=== PATIENT | female | born 1980 | race Two or more races ===

== ENCOUNTER 2018-10-10 10:53 | Emergency (ER) | payer OTHER ==
[2018-10-10 11:04] VITALS: TEMP 98.7; O2SAT 98
[2018-10-10 12:31] LABS: BASO # 0.1 K/uL (0.0-0.2); BASO % 0.9 % (0.0-2.0); EOS # 0.3 K/uL (0.0-0.7); EOS % 4.9 % (0.0-4.0); HEMOGLOBIN 12.2 g/dL (12.0-16.0); LYMPH # 1.3 K/uL (1.0-4.3); LYMPH % 20.9 % (20.0-40.0); MEAN CELL VOLUME 100.8 fl (81.0-99.0); MEAN CORPUSCULAR HEMOGLOBIN 33.1 pg (27.0-31.0); MEAN CORPUSCULAR HGB CONC 32.8 g/dL (33.0-37.0); MEAN PLATELET VOLUME 10.4 fl (7.2-11.7); MONO # 0.5 K/uL (0.0-0.8); NEUT # 3.9 K/uL (1.8-7.0); NEUT % 65.3 % (50.0-75.0); NRBC % 0.3 % (0.0-0.0); RBC 3.68 Mil/uL (3.80-5.20); RED CELL DISTRIBUTION WIDTH 13.6 % (11.5-14.5)
[2018-10-10 12:41] LABS: PROTHROMBIN TIME 11.6 Seconds (9.8-13.1)
[2018-10-10 12:44] LABS: PARTIAL THROMBOPLASTIN TIME 27.2 Seconds (25.6-37.1)
[2018-10-10 12:46] LABS: ALB/GLOB RATIO 1.3 (1.0-2.1); ALBUMIN 4.1 g/dL (3.5-5.0); BLOOD UREA NITROGEN 15 mg/dl (7-17); CALCIUM 9.2 mg/dL (8.4-10.2); GFR NON-AFRICAN AMERICAN > 60
[2018-10-10 12:47] LABS: ALT/SGPT 25 U/L (9-52); AST/SGOT 18 U/L (14-36)
[2018-10-10] MEDS ORDERED: Iodixanol 320 MG/ML 100 ML BOTTLE IV ONE (12:52)
[2018-10-10] MEDS ORDERED: Sodium Chloride 0.9% 50 ML IV ONE (12:52)
[2018-10-10 13:07] LABS: D DIMER < 200 ng/mlDDU (0-230)
--- NOTE | 2018-10-10 13:21 | ED PDOC ---
HPI: Hypertension/Hypotension Time Seen by Provider: 10/10/18 11:06 Chief Complaint (Nursing): Palpitations Chief Complaint (Provider): Palpitations History Per: Patient History/Exam Limitations: no limitations Onset/Duration Of Symptoms: Hrs (this morning) Current Symptoms Are (Timing): Still Present Associated Symptoms: Chest Pain (tightness) Additional Complaint(s): Charlotte Little is a 38 year old female, with a past medical history of anorexia, who presents to the emergency department complaining of palpitations associated with left sided chest tightness onset since this morning. Patient reports arriving from a flight from [facility] this morning. She denies any leg swelling or pain, shortness of breath, cough or other medical complaints. Patient is not on OCPs. PMD: None provided. Past Medical History Reviewed: Historical Data, Nursing Documentation, Vital Signs Vital Signs: Last Vital Signs Temp 98.7 F 10/10/18 11:03 Pulse 81 10/10/18 11:03 Resp 19 10/10/18 11:03 BP 129/79 10/10/18 11:03 Pulse Ox 98 10/10/18 11:03 - Medical History Other PMH: Anorexia - Surgical History Surgical History: No Surg Hx - Family History Family History: States: Unknown Family Hx - Social History Current smoker - smoking cessation education provided: No - Allergies Allergies/Adverse Reactions: Allergies Allergy/AdvReac Type Severity Reaction Status Date / Time No Known Allergies Allergy Verified 10/10/18 11:18 Review of Systems ROS Statement: Except As Marked, All Systems Reviewed And Found Negative Cardiovascular: Positive for: Chest Pain (tightness), Palpitations. Negative for: Edema Respiratory: Negative for: Cough, Shortness of Breath Musculoskeletal: Negative for: Leg Pain Physical Exam - Reviewed Nursing Documentation Reviewed: Yes Vital Signs Reviewed: Yes - Physical Exam Appears: Positive for: No Acute Distress Head Exam: Positive for: ATRAUMATIC, NORMAL INSPECTION, NORMOCEPHALIC Skin: Positive for: Normal Color, Warm, Dry Eye Exam: Positive for: Normal appearance, EOMI, PERRL ENT: Positive for: Normal ENT Inspection Neck: Positive for: Normal, Painless ROM, Supple Cardiovascular/Chest: Positive for: Regular Rate, Rhythm, Chest Non Tender. Negative for: Murmur Respiratory: Positive for: Normal Breath Sounds. Negative for: Respiratory Distress Gastrointestinal/Abdominal: Positive for: Normal Exam, Soft. Negative for: Tenderness, Guarding, Rebound Back: Positive for: Normal Inspection. Negative for: L CVA Tenderness, R CVA Tenderness, Vertebral Tenderness Extremity: Positive for: Normal ROM (upper and lower extremities). Negative for: Tenderness, Calf Tenderness, Deformity, Swelling Neurologic/Psych: Positive for: Alert, Oriented. Negative for: Motor/Sensory Deficits - Laboratory Results Result Diagrams: 10/10/18 12:00 10/10/18 12:00 - ECG O2 Sat by Pulse Oximetry: 98 (RA) Pulse Ox Interpretation: Normal Medical Decision Making Medical Decision Making: Time: 11:06 Initial Impression: Palpitations Initial Plan: --Angio Chest PE Protocol [CT] --EKG --CMP --Troponin I --Urine --Urine dipstick --CBC w/ differential --D Dimer --PTT --PT --Chest two views (PA/LAT) [RAD] --Reevaluation 13:[address] FINDINGS: PULMONARY ARTERIES: Unremarkable. No pulmonary embolism. AORTA: No acute findings. No thoracic aortic aneurysm. No aortic atherosclerotic calcification or mural plaque present. LUNGS: Adequate aeration throughout. No nodule, mass or pulmonary consolidation. No central airway lesion appreciable. PLEURAL SPACES: Unremarkable. No effusion or pneumothorax. HEART: Unremarkable. No cardiomegaly. No significant pericardial effusion. LYMPH NODES: No lymphadenopathy. BONES, CHEST WALL: Unremarkable. No fracture or destructive lesion OTHER FINDINGS: Unremarkable. IMPRESSION: No CT evidence of pulmonary embolus bilaterally. No infiltrate, pleural or pericardial effusion or significant lymphadenopathy identified. Copy of labs and imaging given to patient. Upon discharge, pt states she was evaluated by [facility] this AM (Dr. [place]) who set up appts for outpatient echo on 10/15 and stress test on 10/18. Scribe Attestation: Documented by Armin Mccray, acting as a scribe for Susan Israel MD. Provider Scribe Attestation: All medical record entries made by the Myibcarla were at my direction and personally dictated by me. I have reviewed the chart and agree that the record accurately reflects my personal performance of the history, physical exam, medical decision making, and the department course for this patient. I have also personally directed, reviewed, and agree with the discharge instructions and disposition. Disposition - Clinical Impression Clinical Impression: Palpitations - Disposition Condition: STABLE Additional Instructions: FOLLOW-UP WITH PMD WITHIN 2 DAYS FOR REEVALUATION. Instructions: Palpitations Forms: [facility] (Welsh)
--- NOTE | 2018-10-10 13:38 | CT ---
Date of service: 10/10/2018 PROCEDURE: CT Chest with contrast (Pulmonary Angiogram) HISTORY: Palpitations, recent travel COMPARISON: Chest radiographs 10/10/2018. TECHNIQUE: Axial computed tomography images were obtained of the chest in the pulmonary arterial phase of enhancement. Coronal and sagittal reformatted images were created and reviewed. Intravenous contrast dose: Visipaque 320, 99 cc Radiation dose: Total exam DLP = 219.24 mGy-cm. This CT exam was performed using one or more of the following dose reduction techniques: Automated exposure control, adjustment of the mA and/or kV according to patient size, and/or use of iterative reconstruction technique. FINDINGS: PULMONARY ARTERIES: Unremarkable. No pulmonary embolism. AORTA: No acute findings. No thoracic aortic aneurysm. No aortic atherosclerotic calcification or mural plaque present. LUNGS: Adequate aeration throughout. No nodule, mass or pulmonary consolidation. No central airway lesion appreciable. PLEURAL SPACES: Unremarkable. No effusion or pneumothorax. HEART: Unremarkable. No cardiomegaly. No significant pericardial effusion. LYMPH NODES: No lymphadenopathy. BONES, CHEST WALL: Unremarkable. No fracture or destructive lesion OTHER FINDINGS: Unremarkable. IMPRESSION: No CT evidence of pulmonary embolus bilaterally. No infiltrate, pleural or pericardial effusion or significant lymphadenopathy identified.
--- NOTE | 2018-10-10 14:31 | RAD ---
Date of service: 10/10/2018 HISTORY: Palpitations COMPARISON: No prior. TECHNIQUE: Chest PA and lateral FINDINGS: LUNGS: No active pulmonary disease. PLEURA: No significant pleural effusion identified. No pneumothorax apparent. CARDIOVASCULAR: No aortic atherosclerotic calcification present. Normal cardiac size. No pulmonary vascular congestion. OSSEOUS STRUCTURES: No significant abnormalities. VISUALIZED UPPER ABDOMEN: Normal. OTHER FINDINGS: None. IMPRESSION: No active disease.
[2018-10-10 16:21] VITALS: BP 123/70; PULSE 77; RESP 16
--- NOTE | 2018-10-10 18:59 | CARD ---
APPROVED REPORT Date of service: 10/10/2018 EKG Measurement Heart [id number] <Conclusion> Normal sinus rhythm Normal ECG
== END 2018-10-10 15:07 | disposition home or self-care (01) ==
LOC: H.ER 10:53
DX: R00.2 Palpitations (principal); I10 Essential (primary) hypertension
CPT/HCPCS: 71046; 71275; 80053; 81025; 84484; 85025; 85378; 85610; 85730; 93005; 99283; Q9967